=== PATIENT | male | born 1990 | race Two or more races ===

== ENCOUNTER 2018-11-29 05:51 | Emergency (ER) | payer SELFPAY ==
[~2018-11-29] VITALS: Ht 162.6 cm; Wt 74.8 kg
[2018-11-29 06:06] VITALS: BP 122/74
--- NOTE | 2018-11-29 06:08 | Emergency Room Report ---
History of Present Illness General Chief Complaint: General Complaint Source: Patient Present Illness HPI 28-year-old male history of G6PD deficiency presents with cough, congestion, x1 day, no fevers no chills, no chest pain no shortness of breath, patient denies any aggravating or alleviating factors, he states the severity is mild, no nausea no vomiting, patient resents for evaluation. Allergies: Coded Allergies: NUT - UNSPECIFIED (Verified Allergy, Unknown, 11/29/18) Patient History Past Medical History: see triage record Reviewed Nursing Documentation: PMH: Agreed; PSxH: Agreed Nursing Documentation-PMH Past Medical History: No Stated History Review of Systems All Other Systems: negative except mentioned in HPI Physical Exam Vital Signs Date Time Temp Pulse Resp B/P (MAP) Pulse Ox O2 Delivery O2 Flow Rate FiO2 11/29/18 05:54 98.2 60 16 122/74 (90) 98 Room Air Sp02 EP Interpretation: reviewed, normal General Appearance: well appearing, no apparent distress, alert Head: normocephalic, atraumatic Eyes: bilateral eye PERRL, bilateral eye EOMI ENT: uvula midline, moist mucus membranes, other - Nasal congestion present Neck: supple, thyroid normal, supple/symm/no masses Respiratory: lungs clear, no respiratory distress, no retraction, no accessory muscle use Cardiovascular #1: normal peripheral pulses, regular rate, rhythm, no edema, no gallop, no murmur Gastrointestinal: non tender, soft, no guarding, no rebound Musculoskeletal: normal inspection Neurologic: alert, oriented x3 Psychiatric: mood/affect normal Skin: no rash, warm/dry Medical Decision Making Diagnostic Impression: Primary Impression: URI (upper respiratory infection) Qualified Codes: J06.9 - Acute upper respiratory infection, unspecified ER Course 28-year-old male presents most likely with URI no crackles on exam, no evidence of pneumonia, no evidence of sepsis, disposition home with return precautions symptomatic care Last Vital Signs Date Time Temp Pulse Resp B/P (MAP) Pulse Ox O2 Delivery O2 Flow Rate FiO2 11/29/18 05:54 98.2 60 16 122/74 (90) 98 Room Air Disposition: HOME, SELF-CARE Condition: Stable Scripts Cetirizine Hcl/Pseudoephedrine (ALL DAY ALLERGY-D TABLET) 1 Each Tab.er.12h 1 EACH PO Q12HR for 10 Days, #20 TAB Prov: Balakumar,Paxton MD 11/29/18 Referrals: [facility]. [facility] Patient Instructions: Upper Respiratory Infection, Adult Additional Instructions: The patient was provided with discharge instructions, notified to follow-up with a primary care doctor and or specialist in the next 24-48 hours, and to return to the ED if they have worsening of their symptoms. Please note that this report is being documented using [employer] technology. This can lead to erroneous entry secondary to incorrect interpretation by the dictating instrument. Paxton Shore MD Nov 29, 2018 06:08
--- NOTE | 2018-11-29 06:09 | NUR ---
ED Nurse Note: Pt ambulated to ED from home c/o cough/cold x1day, denies pain or any other symptoms
[2018-11-29] MEDS ORDERED: ALL DAY ALLERG1 EACH PO (06:14)
[2018-11-29 06:15] VITALS: BP 122/74
--- NOTE | 2018-11-29 06:15 | NUR ---
ER DISCHARGE NOTE: Patient is cleared to be discharged per ERMD, pt is aox4, on room air, with stable vital signs. pt was given dc and prescription instructions, pt was able to verbalize understanding, pt id band removed. pt is able to ambulate with steady gait. pt took all belongings.
== END 2018-11-29 06:29 | disposition home or self-care (01) ==
LOC: EMR 06:26
DX: J06.9 Acute upper respiratory infection, unspecified (principal); Z91.018 Allergy to other foods
CPT/HCPCS: 99282